=== PATIENT | male | born 1950 | race Caucasian/White ===

== ENCOUNTER → 2021-07-30 | Outpatient (CLI) | payer MEDICARE, BC ==
[2021-07-30 12:50] LABS: BLOOD UREA NITROGEN 24 MG/DL (7-18); CREATININE FOR GFR 0.86 MG/DL (0.70-1.30); GLOMERULAR FILTRATION RATE > 60.0 (>42)
== END ==
LOC: M LAB 11:59
PROVIDERS: ATTEND Otolaryngology
DX: R22.1 Localized swelling, mass and lump, neck (principal)

== ENCOUNTER → 2021-08-03 | Outpatient (CLI) | payer MEDICARE, BC ==
[~2021-08-03] MED LIST: ISOVUE-370 76% 100ML VIAL As Ordered ONE
== END ==
LOC: M RAD 10:50
PROVIDERS: ATTEND Otolaryngology
DX: R22.1 Localized swelling, mass and lump, neck (principal); E04.1 Nontoxic single thyroid nodule; M50.31 Other cervical disc degeneration, high cervical region; M50.321 Other cervical disc degeneration at C4-C5 level; M50.322 Other cervical disc degeneration at C5-C6 level; M50.323 Other cervical disc degeneration at C6-C7 level
CPT/HCPCS: 70491; Q9967

== ENCOUNTER 2021-09-05 08:05 | Observation (INO) | payer MEDICARE, BC ==
[2021-09-05] VITALS (9 sets, daily range): BP systolic 122–138; BP diastolic 61–83
[~2021-09-05] VITALS: Ht 177.8 cm; Wt 70.0 kg
[~2021-09-05 08:05] MED LIST changes: -ISOVUE-370 76% 100ML VIAL As Ordered ONE; +LR 1,000 ML IV ONE
[2021-09-05] MEDS ORDERED: fentaNYL 100 MCG/2 ML INJECTION As Ordered ONE ×2 (11:46→15:15)
[2021-09-05] MEDS ORDERED: MIDAZOLAM INJ 2MG/2ML VIAL (J2250 PER 1MG) As Ordered ONE (11:59)
[2021-09-05] MEDS ORDERED: POLYSPORIN TOPICAL OINTMENT 15GM As Ordered ONE (11:59)
[2021-09-05] MEDS ORDERED: LIDOCAINE W/EPINEPHRINE 1% 20ML VIAL As Ordered ONE (11:59)
[2021-09-05] MEDS ORDERED: propofoL 200 MG/20 ML VIAL As Ordered ONE (12:00)
[2021-09-05] MEDS ORDERED: dexameTHASONE 4 MG/ML 1ML VIAL (J1100 PER 1MG) IV ONE (12:00)
[2021-09-05] MEDS ORDERED: LIDOCAINE 2% 100MG/5ML SDV (FOR ANES.) As Ordered ONE (12:00)
[2021-09-05] MEDS ORDERED: ROCURONIUM BROMIDE 50 MG/5 ML VIAL As Ordered ONE (12:00)
[2021-09-05] MEDS ORDERED: ACETAMINOPHEN 1000MG 100ML IV BTL (OFIRMEV) (J0131 PER 10MG) As Ordered ONE (12:46)
[2021-09-05] MEDS ORDERED: dexameTHASONE 4 MG/ML 1ML VIAL (J1100 PER 1MG) As Ordered ONE (12:47)
[2021-09-05] MEDS ORDERED: GLYCOPYRROLATE INJ 0.2 MG/ML 2 ML VIAL As Ordered ONE (12:56)
[2021-09-05] MEDS ORDERED: PHENYLephrine 500MCG 5ML (100MCG/ML) SYRINGE As Ordered ONE (13:03)
[2021-09-05] MEDS ORDERED: ePHEDrine SULFATE 25 MG/5 ML(5MG/ML) SYRINGE As Ordered ONE ×2 (13:03→14:10)
[2021-09-05] MEDS ORDERED: ONDANSETRON 4MG/2ML VIAL As Ordered ONE ×2 (13:53→15:37)
[2021-09-05] MEDS ORDERED: METOCLOPRAMIDE INJ 10MG/2ML VIAL (J2765 PER 1) IV PRN (17:00)
[2021-09-05] MEDS ORDERED: fentaNYL 100 MCG/2 ML INJECTION IV PRN (17:00)
[2021-09-05] MEDS ORDERED: HYDROMORPHONE HCL 0.5 MG/ 0.5 ML SYRINGE (J1170 PER 1) IV PRN (17:00)
[2021-09-05] MEDS ORDERED: LR 1,000 ML IV SCH (17:00)
[2021-09-05] MEDS ORDERED: oxyCODONE 5MG TAB PO PRN (17:00)
[2021-09-05] MEDS ORDERED: ONDANSETRON 4MG/2ML VIAL IV PRN (17:00)
[2021-09-05] MEDS: LR 1,000 ML IV SCH (19:00)
[2021-09-05] MEDS: BACITRACIN OINTMENT 30GM TUBE TOP SCH (21:03)
[2021-09-05] MEDS ORDERED: ACETAMINOPHEN TAB 650MG DOSE (2X325MG) PO PRN (23:00)
[2021-09-06] VITALS: BP 107/61
[2021-09-06 01:00] VITALS: BP 117/66
[2021-09-06] MEDS ORDERED: PERCOCET 5MG/325MG TAB PO PRN (01:25)
[2021-09-06 02:00] VITALS: BP 120/66
[2021-09-06 04:00] VITALS: BP 137/72
[2021-09-06 05:46] LABS: HEMATOCRIT 33.3 % (42.0-52.0); HEMOGLOBIN 10.9 g/dl (13.5-17.5); MEAN CORPUSCULAR HEMOGLOBIN 29.8 pg (27.0-33.0); MEAN CORPUSCULAR HGB CONC 32.7 g/dl (32.0-36.5); PLATELET COUNT, AUTOMATED 357 10^3/uL (150-450); RED BLOOD COUNT 3.66 10^6/uL (4.30-6.10); WHITE BLOOD COUNT 11.8 10^3/uL (4.0-10.0)
[2021-09-06 06:12] LABS: BLOOD UREA NITROGEN 13 MG/DL (7-18); CALCIUM LEVEL 9.3 MG/DL (8.8-10.2); CARBON DIOXIDE LEVEL 29 MEQ/L (21-32); CHLORIDE LEVEL 108 MEQ/L (98-107); GLOMERULAR FILTRATION RATE > 60.0 (>42); GLUCOSE, FASTING 94 MG/DL (70-100); POTASSIUM SERUM 4.3 MEQ/L (3.5-5.1); SODIUM LEVEL 140 MEQ/L (136-145)
[2021-09-06] MEDS: LR 1,000 ML IV SCH ×2 (07:55→13:00)
[2021-09-06] MEDS: BACITRACIN OINTMENT 30GM TUBE TOP SCH (07:55)
[2021-09-06 08:00] VITALS: BP 129/72
[2021-09-06 08:05] LABS: ANISOCYTOSIS 1+; ATYPICAL LYMPH 2 % (0-5); LYMPHOCYTES 11 % (16-44); METAMYELOCYTES 5 % (0-0); MONOCYTES 4 % (0-5); MYELOCYTES 1 % (0-0); NEUTROPHILS 74 % (28-66); PLATELET ESTIMATE NORMAL (NORMAL)
[2021-09-06 08:06] LABS: OVALOCYTES 1+
[2021-09-06 08:07] LABS: POIKILOCYTOSIS 1+
[2021-09-06] MEDS ORDERED: BACI50OI TOP (10:29)
[2021-09-06] MEDS ORDERED: PERCOCET PO (10:29)
== END 2021-09-06 14:10 | disposition home health service (06) ==
LOC: M SDC 08:05 → M PCU 08:06
PROVIDERS: ADMIT Internal Medicine Nephrology; ATTEND Internal Medicine Nephrology
DX: C77.0 Secondary and unspecified malignant neoplasm of lymph nodes of head, face and neck (principal); C44.42 Squamous cell carcinoma of skin of scalp and neck; Z88.1 Allergy status to other antibiotic agents
CPT/HCPCS: 36415; 38724; 80048; 85025; 88307; 88331; 88342; 96365; 96366; G0378; J0131; J0697; J1100; J2250; J2370; J2405; J3010

== ENCOUNTER → 2021-10-04 | Outpatient (CLI) | payer MEDICARE, BC ==
[~2021-10-04] MED LIST changes: +BACI50OI TOP; -LR 1,000 ML IV ONE; +PERCOCET PO
== END ==
LOC: M ONCR 14:39
PROVIDERS: ATTEND General Practice
DX: C10.9 Malignant neoplasm of oropharynx, unspecified (principal); Z87.891 Personal history of nicotine dependence; Z88.1 Allergy status to other antibiotic agents
CPT/HCPCS: 31575; G0463

== ENCOUNTER → 2021-10-09 | Outpatient (CLI) | payer MEDICARE, BC | LOC: M PLARAD 15:17 | PROVIDERS: ATTEND Otolaryngology | DX: C77.0 Secondary and unspecified malignant neoplasm of lymph nodes of head, face and neck (principal) | CPT/HCPCS: 78815; A9552 ==

== ENCOUNTER 2021-10-11 10:54 | Outpatient (RCR) | payer MEDICARE, BC | END 2021-11-01 | LOC: M ST 10:54 | PROVIDERS: ATTEND Otolaryngology | DX: C77.0 Secondary and unspecified malignant neoplasm of lymph nodes of head, face and neck (principal) ==

== ENCOUNTER → 2021-11-01 | Outpatient (RCR) | payer MEDICARE, BC | LOC: M ONCR 10-15 09:15 | PROVIDERS: ATTEND General Practice | DX: C09.0 Malignant neoplasm of tonsillar fossa (principal); Z88.1 Allergy status to other antibiotic agents; Z98.890 Other specified postprocedural states; Z87.891 Personal history of nicotine dependence ==

== ENCOUNTER 2021-11-30 10:59 | Outpatient (RCR) | payer MEDICARE, BC ==
[~2021-11-30 10:59] MED LIST changes: +LIDO2SOL17 PO; +MAGICMW SSP; +ONDA4TAB6 PO; +OXYC1SOL3 PO
== END 2021-12-02 ==
LOC: M ONCR 10:59
PROVIDERS: ATTEND General Practice
DX: C09.0 Malignant neoplasm of tonsillar fossa (principal)

== ENCOUNTER 2021-12-17 11:02 | Outpatient (RCR) | payer MEDICARE, BC | END 2022-01-02 | LOC: M ONCR 11:02 | PROVIDERS: ATTEND General Practice | DX: C09.0 Malignant neoplasm of tonsillar fossa (principal) ==

== ENCOUNTER → 2022-01-18 | Outpatient (CLI) | payer MEDICARE, BC | LOC: M ONCR 11:13 | PROVIDERS: ATTEND General Practice | DX: H92.02 Otalgia, left ear (principal); I89.0 Lymphedema, not elsewhere classified; K12.33 Oral mucositis (ulcerative) due to radiation; R68.2 Dry mouth, unspecified; Z92.3 Personal history of irradiation ==

== ENCOUNTER → 2022-02-18 | Outpatient (CLI) | payer MEDICARE, BC | LOC: M PLARAD 14:19 | PROVIDERS: ATTEND General Practice | DX: C09.0 Malignant neoplasm of tonsillar fossa (principal); E04.1 Nontoxic single thyroid nodule; I70.0 Atherosclerosis of aorta; I25.10 Atherosclerotic heart disease of native coronary artery without angina pectoris; I31.39 Other pericardial effusion (noninflammatory); K57.30 Diverticulosis of large intestine without perforation or abscess without bleeding; K80.20 Calculus of gallbladder without cholecystitis without obstruction; Z98.890 Other specified postprocedural states | CPT/HCPCS: 78815; A9552 ==

== ENCOUNTER → 2022-02-19 | Outpatient (CLI) | payer MEDICARE, BC | LOC: M ONCR 10:51 | PROVIDERS: ATTEND General Practice | DX: C09.9 Malignant neoplasm of tonsil, unspecified (principal); L59.8 Other specified disorders of the skin and subcutaneous tissue related to radiation; Z92.3 Personal history of irradiation ==

== ENCOUNTER → 2022-03-21 | Outpatient (CLI) | payer MEDICARE, BC | LOC: M ONCR 10:02 | PROVIDERS: ATTEND General Practice | DX: C09.9 Malignant neoplasm of tonsil, unspecified (principal); C77.0 Secondary and unspecified malignant neoplasm of lymph nodes of head, face and neck; L59.8 Other specified disorders of the skin and subcutaneous tissue related to radiation; Z92.3 Personal history of irradiation; Z87.891 Personal history of nicotine dependence; Z88.1 Allergy status to other antibiotic agents; Z79.899 Other long term (current) drug therapy | CPT/HCPCS: 31575; G0463 ==

== ENCOUNTER → 2022-06-11 | Outpatient (CLI) | payer MEDICARE, BC ==
[~2022-06-11] MED LIST changes: +GASTROGRAFIN SOLUTION 30ML As Ordered ONE; +ISOVUE-370 76% 100ML VIAL As Ordered ONE; +LIDO15SO4 PO; -LIDO2SOL17 PO
== END ==
LOC: M RAD 12:00
PROVIDERS: ATTEND General Practice
DX: C09.0 Malignant neoplasm of tonsillar fossa (principal); I70.0 Atherosclerosis of aorta; R91.8 Other nonspecific abnormal finding of lung field; K80.20 Calculus of gallbladder without cholecystitis without obstruction; R16.1 Splenomegaly, not elsewhere classified; K59.00 Constipation, unspecified; M47.816 Spondylosis without myelopathy or radiculopathy, lumbar region; M51.34 Other intervertebral disc degeneration, thoracic region; M51.36 Other intervertebral disc degeneration, lumbar region; C79.51 Secondary malignant neoplasm of bone
CPT/HCPCS: 71250; 74176; Q9963

== ENCOUNTER → 2022-06-20 | Outpatient (CLI) | payer MEDICARE, BC ==
[~2022-06-20] MED LIST changes: -GASTROGRAFIN SOLUTION 30ML As Ordered ONE; -ISOVUE-370 76% 100ML VIAL As Ordered ONE
[2022-06-20 11:30] LABS: BASO # 0.1 10^3/uL (0.0-0.2); BASO % 1.7 % (0.0-1.0); EOS # 0.1 10^3/uL (0.0-0.5); EOS % 1.4 % (0.0-3.0); HEMATOCRIT 37.2 % (42.0-52.0); HEMOGLOBIN 12.4 g/dl (13.5-17.5); LYMPH # 0.5 10^3/uL (1.5-5.0); LYMPH % 6.4 % (24.0-44.0); MEAN CORPUSCULAR HEMOGLOBIN 30.2 pg (27.0-33.0); MEAN CORPUSCULAR HGB CONC 33.3 g/dl (32.0-36.5); MEAN CORPUSCULAR VOLUME 90.7 fl (80.0-96.0); MONO # 0.6 10^3/uL (0.0-0.8); MONO % 7.6 % (2.0-8.0); NEUTROPHILS # 5.6 10^3/uL (1.5-8.5); NEUTROPHILS % 71.6 % (36.0-66.0); PLATELET COUNT, AUTOMATED 387 10^3/uL (150-450); WHITE BLOOD COUNT 7.8 10^3/uL (4.0-10.0)
[2022-06-20 11:43] LABS: ALBUMIN 3.8 G/DL (3.2-5.2); ALKALINE PHOSPHATASE 110 U/L (46-116); ALT/SGPT 26 U/L (7.0-40); AST/SGOT 32 U/L (<34); BILIRUBIN,TOTAL 0.6 MG/DL (0.3-1.2); BLOOD UREA NITROGEN 21 MG/DL (9-23); CALCIUM LEVEL 9.2 MG/DL (8.3-10.6); CARBON DIOXIDE LEVEL 27 MMOL/L (20-31); CHLORIDE LEVEL 101 MMOL/L (98-107); CREATININE FOR GFR 0.75 MG/DL (0.70-1.30); FREE T4 1.13 NG/DL (0.89-1.76); GLOMERULAR FILTRATION RATE > 60.0 (>42); GLUCOSE, FASTING 97 MG/DL (74-106); POTASSIUM SERUM 4.9 MMOL/L (3.5-5.1); SODIUM LEVEL 134 MMOL/L (136-145); THYROID STIMULATING HORMONE 3.467 uIU/ML (0.55-4.78); TOTAL PROTEIN 6.7 G/DL (5.7-8.2)
== END ==
LOC: M ONCR 09:47
PROVIDERS: ATTEND General Practice
DX: C09.0 Malignant neoplasm of tonsillar fossa (principal); Z79.51 Long term (current) use of inhaled steroids; Z87.891 Personal history of nicotine dependence; Z88.1 Allergy status to other antibiotic agents; Z92.3 Personal history of irradiation; Z79.899 Other long term (current) drug therapy
CPT/HCPCS: 31575; 36415; 80053; 84155; 84165; 84439; 84443; 85025; 85046; G0463

== ENCOUNTER → 2022-10-04 | Outpatient (CLI) | payer MEDICARE, BC ==
[~2022-10-04] MED LIST changes: +LIDO15SO PO; -LIDO15SO4 PO
== END ==
LOC: M ONCR 12:46
PROVIDERS: ATTEND General Practice
DX: Z08 Encounter for follow-up examination after completed treatment for malignant neoplasm (principal); Z85.818 Personal history of malignant neoplasm of other sites of lip, oral cavity, and pharynx; Z71.2 Person consulting for explanation of examination or test findings; Z87.891 Personal history of nicotine dependence; Z88.1 Allergy status to other antibiotic agents; Z92.3 Personal history of irradiation
CPT/HCPCS: 31575; G0463

== ENCOUNTER → 2023-01-07 | Outpatient (CLI) | payer MEDICARE, BC | LOC: M ONCR 12:51 | PROVIDERS: ATTEND General Practice | DX: Z08 Encounter for follow-up examination after completed treatment for malignant neoplasm (principal); Z85.818 Personal history of malignant neoplasm of other sites of lip, oral cavity, and pharynx; M54.2 Cervicalgia; Z71.2 Person consulting for explanation of examination or test findings; Z79.899 Other long term (current) drug therapy; Z87.891 Personal history of nicotine dependence; Z88.1 Allergy status to other antibiotic agents; Z92.3 Personal history of irradiation | CPT/HCPCS: 31575; G0463 ==

== ENCOUNTER → 2023-04-08 | Outpatient (CLI) | payer MEDICARE, BC | LOC: M ONCR 12:50 | PROVIDERS: ATTEND General Practice | DX: Z08 Encounter for follow-up examination after completed treatment for malignant neoplasm (principal); Z85.818 Personal history of malignant neoplasm of other sites of lip, oral cavity, and pharynx; Z71.2 Person consulting for explanation of examination or test findings; Z87.891 Personal history of nicotine dependence; Z88.1 Allergy status to other antibiotic agents; Z92.3 Personal history of irradiation | CPT/HCPCS: 31575; G0463 ==

== ENCOUNTER → 2023-07-09 | Outpatient (CLI) | payer MEDICARE, BC ==
[~2023-07-09] MED LIST changes: -LIDO15SO PO; +LIDO15SO8 PO
== END ==
LOC: M ONCR 14:06
PROVIDERS: ATTEND General Practice
DX: Z08 Encounter for follow-up examination after completed treatment for malignant neoplasm (principal); Z71.2 Person consulting for explanation of examination or test findings; Z85.818 Personal history of malignant neoplasm of other sites of lip, oral cavity, and pharynx; Z79.899 Other long term (current) drug therapy; Z87.891 Personal history of nicotine dependence; Z88.1 Allergy status to other antibiotic agents; Z92.3 Personal history of irradiation
CPT/HCPCS: 31575; G0463

== ENCOUNTER → 2023-11-25 | Outpatient (CLI) | payer MEDICARE, BC ==
[~2023-11-25] MED LIST changes: +OMEP-173 PO; +ONDA-282 PO; -ONDA4TAB6 PO
== END ==
LOC: M ONCR 11:26
PROVIDERS: ATTEND General Practice
DX: Z08 Encounter for follow-up examination after completed treatment for malignant neoplasm (principal); Z85.818 Personal history of malignant neoplasm of other sites of lip, oral cavity, and pharynx; Z87.891 Personal history of nicotine dependence; Z92.3 Personal history of irradiation; Z88.1 Allergy status to other antibiotic agents; Z79.899 Other long term (current) drug therapy
CPT/HCPCS: 31575; G0463

== ENCOUNTER → 2024-05-27 | Outpatient (CLI) | payer MEDICARE, BC | LOC: M ONCR 11:27 | PROVIDERS: ATTEND General Practice | DX: Z08 Encounter for follow-up examination after completed treatment for malignant neoplasm (principal); Z85.819 Personal history of malignant neoplasm of unspecified site of lip, oral cavity, and pharynx; Z87.891 Personal history of nicotine dependence; Z92.3 Personal history of irradiation; Z88.1 Allergy status to other antibiotic agents | CPT/HCPCS: 31575; G0463 ==

== ENCOUNTER → 2024-08-03 | Outpatient (CLI) | payer MEDICARE, BC ==
[~2024-08-03] MED LIST changes: +PROHANCE 279.3MG/ML 15ML VIAL ONE
== END ==
LOC: M PLAIMG 14:16
PROVIDERS: ATTEND General Practice
DX: C09.0 Malignant neoplasm of tonsillar fossa (principal)
CPT/HCPCS: 72156; A9576

== ENCOUNTER → 2024-11-24 | Outpatient (CLI) | payer MEDICARE ==
[~2024-11-24] MED LIST changes: -PROHANCE 279.3MG/ML 15ML VIAL ONE
== END ==
LOC: M ONCR 11:44
PROVIDERS: ATTEND General Practice
DX: Z08 Encounter for follow-up examination after completed treatment for malignant neoplasm (principal); Z85.818 Personal history of malignant neoplasm of other sites of lip, oral cavity, and pharynx; Z87.891 Personal history of nicotine dependence; Z92.3 Personal history of irradiation; Z63.4 Disappearance and death of family member; Z88.1 Allergy status to other antibiotic agents
CPT/HCPCS: 31575; G0463